=== PATIENT | male | born 1985 | race Caucasian/White ===

== ENCOUNTER 2018-11-03 00:32 | Emergency (ER) | payer OTHER ==
[~2018-11-03] VITALS: Ht 172.7 cm; Wt 73.0 kg
--- NOTE | 2018-11-03 00:40 | NUR ---
PT BIBSELF C/O LOWER BACK PAIN X1.5 WEEKS, WORSE TODAY AFTER WORKING OUT. -DYSURIA, -HEMATURIA,-TRAUMA. FAMILY HX OF KIDNEY STONES. PT AOX4. PT ON MONITOR IN BED 9 WITH FRIEND AT BEDSIDE. WILL CONTINUE TO MONITOR.
--- NOTE | 2018-11-03 00:47 | NUR ---
URINE COLLECTED AND SENT TO LAB
[2018-11-03] MEDS ORDERED: KETOROLAC TROMETHAMINE INJ 30 MG/ML VIAL ONE (00:57)
[2018-11-03] MEDS ORDERED: DIAZEPAM 10 MG TABLET ONE (00:58)
[2018-11-03 00:59] LABS: APPEARANCE,URINE CLEAR (CLEAR); BILIRUBIN,URINE NEGATIVE (NEGATIVE); BLOOD, URINE NEGATIVE Ery/uL (NEGATIVE); COLOR,URINE YELLOW (YELLOW); KETONES,URINE NEGATIVE (NEGATIVE); LEUKOCYTE ESTERASE ,URINE NEGATIVE (NEGATIVE); NITRITE, URINE NEGATIVE (NEGATIVE); PH,URINE 6.5 (5.0-8.0); PROTEIN,URINE NEGATIVE (NEGATIVE); UGLUCOSE NEGATIVE (NEGATIVE); UROBILINOGEN,URINE 0.2 EU/dL (0.2)
[2018-11-03] MEDS ORDERED: KETOROLAC TROMETHAMINE INJ 60 MG/2 ML VIAL IM ONE (01:00)
[2018-11-03] MEDS ORDERED: DIAZEPAM 10 MG TABLET PO ONE (01:00)
[2018-11-03 01:10] VITALS: BP 137/82
== END 2018-11-03 01:35 | disposition home or self-care (01) ==
LOC: ER 00:34
DX: S39.012A Strain of muscle, fascia and tendon of lower back, initial encounter (principal); F17.200 Nicotine dependence, unspecified, uncomplicated; X58.XXXA Exposure to other specified factors, initial encounter; Y93.89 Activity, other specified; Y92.89 Other specified places as the place of occurrence of the external cause; Y99.8 Other external cause status
CPT/HCPCS: 81001; 96372; 99283; J1885; 81000-TC